=== PATIENT | female | born 1990 | race Caucasian/White ===

== ENCOUNTER 2023-03-25 14:29 | Outpatient (CLI) | payer BC ==
[2023-03-25 15:03] LABS: Hematocrit 39.2 % (34.9-44.5)
[2023-03-25 15:35] LABS: BHCG - Serum Negative (NEGATIVE); Pregs Control Background? CLEAR/WHITE (CLR/WHITE); Pregs Control Bar Appear? YES (CONTROL BAR)
== END 2023-03-25 14:30 | disposition home or self-care (01) ==
LOC: LABBT 14:29
PROVIDERS: ATTEND Otolaryngology Plastic Surgery within the Head & Neck
DX: Z01.812 Encounter for preprocedural laboratory examination (principal); J01.01 Acute recurrent maxillary sinusitis; J01.11 Acute recurrent frontal sinusitis; J01.21 Acute recurrent ethmoidal sinusitis; J01.31 Acute recurrent sphenoidal sinusitis; J34.2 Deviated nasal septum; J34.3 Hypertrophy of nasal turbinates
CPT/HCPCS: 84703; 85014

== ENCOUNTER 2023-03-27 10:13 | Day surgery (SDC) | payer BC ==
[2023-03-25 14:50] VITALS: BMI 28.3
[2023-03-27] MEDS ORDERED: Oxymetazoline HCl 0.05% (30 ML BOT) ONE ×2 (10:50→12:47)
[2023-03-27] MEDS ORDERED: EPINEPHrine 1 MG/ML VIAL ONE (12:46)
[2023-03-27] MEDS ORDERED: Bacitracin Zinc Ointment 30 gm TUBE ONE (12:47)
[2023-03-27] MEDS ORDERED: Lidocaine 1% (PF) 30 ML VIAL ONE (12:47)
[2023-03-27] MEDS ORDERED: fentaNYL PF 100 MCG/2 ML SYRINGE ONE (12:48)
[2023-03-27] MEDS ORDERED: NEOSTIGMINE 3 MG/3 ML SYR 3 MG/3 ML SYRINGE ONE ×2 (13:09→13:46)
[2023-03-27] MEDS ORDERED: Lidocaine 1% PF 5 ML VIAL ONE (13:09)
[2023-03-27] MEDS ORDERED: Ondansetron PF 4 MG/2 ML Vial ONE ×2 (13:09→13:45)
[2023-03-27] MEDS ORDERED: PROPOFOL 200 MG/20 ML VIAL ONE (13:09)
[2023-03-27] MEDS ORDERED: Rocuronium Bromide 10 MG/ML (10ML VIAL) ONE (13:09)
[2023-03-27] MEDS ORDERED: Glycopyrrolate 0.2 MG/ML 5 ML SYRINGE ONE ×2 (13:09→13:46)
[2023-03-27] MEDS ORDERED: Dexamethasone 20 MG/5 ML VIAL ONE (13:09)
[2023-03-27] MEDS ORDERED: methylPREDNISolone Acetate 40 mg/ml Vial ONE (13:14)
[2023-03-27] MEDS ORDERED: fentaNYL 50 mcg/mL 1 mL Vial ONE ×2 (14:18→14:32)
[2023-03-27] MEDS ORDERED: Hydrocodone-Acetamin 15 ML UDCUP ONE (16:49)
== END 2023-03-27 17:39 | disposition home or self-care (01) ==
LOC: SDC 10:13
PROVIDERS: ATTEND Otolaryngology Plastic Surgery within the Head & Neck
PROC: 09SM4ZZ Reposition Nasal Septum, Percutaneous Endoscopic Approach (ICD-10-PCS; principal; 2023-03-27)
PROC: 09TV4ZZ Resection of Left Ethmoid Sinus, Percutaneous Endoscopic Approach (ICD-10-PCS; principal; 2023-03-27)
PROC: 09TU4ZZ Resection of Right Ethmoid Sinus, Percutaneous Endoscopic Approach (ICD-10-PCS; principal; 2023-03-27)
DX: J34.2 Deviated nasal septum (principal); J34.3 Hypertrophy of nasal turbinates; J01.01 Acute recurrent maxillary sinusitis; J01.11 Acute recurrent frontal sinusitis; J01.21 Acute recurrent ethmoidal sinusitis; J01.31 Acute recurrent sphenoidal sinusitis
CPT/HCPCS: J0171; J1030; J1100; J2001; J2405; J2704; J3010